=== PATIENT | female | born 1995 | race Caucasian/White ===

== ENCOUNTER → 2018-11-01 | Outpatient (CLI) | payer OTHER ==
[~2018-11-01] MED LIST: SERT20OR6 PO
== END ==
LOC: LAB 14:38
PROVIDERS: ATTEND Student in an Organized Health Care Education/Training Program
DX: Z11.8 Encounter for screening for other infectious and parasitic diseases (principal); Z11.3 Encounter for screening for infections with a predominantly sexual mode of transmission
CPT/HCPCS: 87491; 87591

== ENCOUNTER 2018-11-27 15:15 | Emergency (ER) | payer OTHER ==
[2018-11-27 15:36] VITALS: BP 124/77
[2018-11-27] MEDS ORDERED: SERT25TA90 PO (15:40)
--- NOTE | 2018-11-27 16:43 | ER Report ---
History and Physical Time Seen By MD: 16:43 Hx. of Stated Complaint: Patine has not had a BM since Tuesday. Has been taking an iron supplement HPI/ROS 23 y/o female taking iron supplements presents to the ED with no BM in 3 days. No abdominal pain other than bloating. Has taken Mirilax and magnesium citrate without relief. No fever. No n/v. No previous abdominal surgeries. Remainder of the 14 system rev: Yes Allergies: Coded Allergies: No Known Drug Allergies (Unverified , 11/27/18) Home Meds Reported Medications Sertraline Hcl (SERTRALINE HCL) 25 Mg Tablet, 1 TAB PO QDAY, TAB 11/27/18 Discontinued Reported Medications Sertraline Hcl (ZOLOFT) 20 Mg/1 Ml Oral.conc, 20 MG PO 11/01/18 Reviewed Nurses Notes: Yes Old Medical Records Reviewed: Yes Smoking Status: Never Smoker Hx Substance Use Disorder: No Hx Alcohol Use: No Constitutional Vital Sign - Last 24 Hours 11/27/18 15:36 Pulse 71 Resp 16 B/P (MAP) 124/77 Pulse Ox 96 O2 Delivery Room Air Physical Exam General Appearance: The patient is alert, has no immediate need for airway protection and no current signs of toxicity. Eyes: Pupils equal and round no injection. Respiratory: Chest is non tender, lungs are clear to auscultation. Cardiac: regular rate and rhythm Gastrointestinal: Abdomen is soft and non tender, no masses, bowel sounds normal. Skin: No rashes or lesions. DIFFERENTIAL DIAGNOSIS: After history and physical exam differential diagnosis was considered for abdominal pain including but not limited to appendicitis, cholecystitis, gastritis and urinary tract infection. Medical Decision Making ED Course/Re-evaluation ED Course Abdominal series x-rays show no evidence of constipation. Benign abdominal exam. I counseled the patient to stop taking her vitamins, eating normal diet, drink plenty of fluids, and weight at least 2-3 more days before becoming concerned. No evidence of a bowel obstruction. Decision to Disposition Date: November 27, 2018 Decision to Disposition Time: 17:51 Depart Departure Latest Vital Signs Vital Signs Date Time Temp Pulse Resp B/P (MAP) Pulse Ox O2 Delivery O2 Flow Rate FiO2 11/27/18 15:36 71 16 124/77 96 Room Air Impression: Primary Impression: Abdominal bloating Condition: Improved Disposition: HOME OR SELF-CARE Referrals: AMANDA RUSHING DO (PCP) Patient Instructions: Gas and Bloating (ED) TILA HAINES MD November 27, 2018 16:43
[2018-11-27] MEDS ORDERED: PEG (High)/E-LYTE SOLN 4000 ML PO ONE (16:45)
--- NOTE | 2018-11-27 17:13 | RADIOLOGY IMAGING REPORT ---
FACILITY: [facility] PATIENT NAME: Aida Aranda : 1995 MR: [id number] V: [id number] EXAM DATE: ORDERING PHYSICIAN: TILA HAINES TECHNOLOGIST: Location: [facility] Patient: Aida Aranda : 1995 Visit/Account:[id number] Date of Sevice: 11/27/2018 ACUTE ABDOMEN SERIES 3 VIEW HISTORY: Abdominal pain constipation chest and abdominal series. FINDINGS: Nonspecific bowel gas pattern with air-filled nonfecalized colon. No dilated small bowel seen. IUD within the pelvis. Chest film is clear. Cardiac and hilar structures well-maintained. Bony structures are unremarkable. IMPRESSION: 1. Unremarkable abdominal series. 2. Normal chest Report Dictated By: Bronson Santo MD at 11/27/2018 5:05 PM Report E-Signed By: Bronson Santo MD at 11/27/2018 5:08 PM WSN:[email or web address]
== END 2018-11-27 17:59 | disposition home or self-care (01) ==
LOC: ER 17:17
DX: R14.0 Abdominal distension (gaseous) (principal)
CPT/HCPCS: 74022; 99283